=== PATIENT | female | born 1980 | race American Indian/Alaskan Native ===

== ENCOUNTER 2016-10-06 08:31 | Inpatient (IN) | payer BC ==
[2016-10-02 12:40] LABS: Basophils % (Auto) 0.6 % (0.0-1.8); Hematocrit 39.1 % (30.3-42.9); Hemoglobin 12.7 gm/dl (10.1-14.3); Mean Corpuscular HGB Conc 32 % (30-34); Mean Corpuscular Hemoglobin 30 pg (28-32); Mean Corpuscular Volume 93 fl (79-97); Platelet Count 195 K/mm3 (140-440); Red Cell Distribution Width 14.5 % (13.2-15.2); White Blood Count 5.5 K/mm3 (4.5-11.0)
--- NOTE | 2016-10-05 20:04 | History and Physical Report ---
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 History Operations: Negative Past Surgical History Abnormal PAP: negative Infection History HIV Risk Eval: no Hx of STD: None Active Medications (reviewed today): IBUPROFEN 800 MG TABS (IBUPROFEN) 1 po TID (PRN) OXYCODONE-ACETAMINOPHEN 5-325 MG TABS (OXYCODONE-ACETAMINOPHEN) 1-2po q6h LEVOTHYROXINE SODIUM 100 MCG TABS (LEVOTHYROXINE SODIUM) 1 po qd LATANOPROST SOLN (LATANOPROST SOLN) TIMOPTIC SOLN (TIMOLOL MALEATE SOLN) Current Allergies (reviewed today): No known allergies Past Medical History: Reviewed history from 06/22/2016 and no changes required: glaucoma thyroid disease Past Surgical History: Reviewed history from 06/22/2016 and no changes required: Negative Past Surgical History Social History: Reviewed history from 06/22/2016 and no changes required: Patient is single Smoking History: Patient has never smoked. Risk Factors: Smoked Tobacco Use: Never smoker Smokeless Tobacco Use: Never Drug use: no HIV high-risk behavior: no Alcohol use: yes Type: rare Drinks per day: social Exercise: yes Seatbelt use: 100 % Previous Tobacco Use: Signed On - 06/22/2016 Smoked Tobacco Use: Never smoker Drug use: no Previous Alcohol Use: Signed On 06/22/2016 Alcohol use: no Exercise: yes Times per week: 3 Seatbelt use: 100 % PAP Smear History: Date of Last PAP Smear: 06/24/2015 Review of Systems General Denies fever, chills, sweats, anorexia, fatigue, weakness, malaise, weight loss and sleep disorder. Complains of pelvic pain. Denies vaginal discharge, incontinence, dysuria, hematuria, urinary frequency, amenorrhea, menorrhagia, abnormal vaginal bleeding, genital sores, decreased libido, painful periods, painful sex, urinary urgency, hot flashes, vaginal dryness, vaginal itching and vaginal odor. CV Denies chest pains, palpitations, syncope, dyspnea on exertion, orthopnea, PND and peripheral edema. Resp Denies cough, dyspnea at rest, excessive sputum, hemoptysis, wheezing and pleurisy. GI Denies nausea, vomiting, diarrhea, constipation, change in bowel habits, abdominal pain, melena, hematochezia, jaundice, gas/bloating, indigestion/ heartburn, dysphagia and odynophagia. Endo Denies cold intolerance, heat intolerance, polydipsia, polyphagia, polyuria and unusual weight change. Breast Denies left breast lump, right breast lump, nipple discharge, bloody discharge from nipple, breast pain, abnormal mammogram and breast enlargement. MS Denies back pain, joint pain, joint swelling, muscle cramps, muscle weakness, stiffness, arthritis, sciatica, restless legs, leg pain at night and leg pain with exertion. Derm Denies rash, itching, dryness and suspicious lesions. Neuro Denies paralysis, paresthesias, headache, seizures, tremors, vertigo, transient blindness, frequent falls, frequent headaches and difficulty walking. Psych Denies depression, anxiety, irritability and mood swings. Eyes Denies blurring, diplopia, irritation, discharge, vision loss, eye pain and photophobia. ENT Denies earache, ear discharge, tinnitus, decreased hearing, nasal congestion, nosebleeds, sore throat and hoarseness. Allergy Denies urticaria, allergic rash, hay fever and recurrent infections. Heme Denies abnormal bruising, bleeding and enlarged lymph nodes. Physical Exam Appearance: well developed, well nourished, no acute distress Other Exams Lungs: no rales, rhonchi, or wheezes Heart: S1, S2, no murmur, rub, or gallop Abdomen: mass Skin: no ulcers, xanthomas Lymph: no cervical, axillary, or inguinal adenopathy Extremities: normal alignment, no joint enlargement, crepitus, masses or tenderness; normal tone and strength Genitourinary Exam Vulva: normal, no lesions or discharge Urethral meatus: normal size and location, no lesions or discharge Urethra: no discharge Bladder: no cystocele Vagina: normal appearance, no discharge, lesions. No evidence of cystocele or rectocele. Cervix: normal appearance, no lesions, no discharge Uterus: mass Uterus Size: fills the entire pelvis to ~5cm above the umbilicus Adnexa: mass Impression & Recommendations: Problem # 1: Fibroids of uterus; Intramural (ICD-218.1) (WDC32-O76.1) Diagnosis explained to patient . Questions answered. Discussed with patient various medical, surgical and radioloigal therapies common for treatment: Hormonal/medical therapy, fibroid embolization, removal of fibroids or hysterectomy . She desires fertility and desires to proceed with abdominal myomectomy. Consent reviewed and signed . Possible laparoscopy or laparotomy explained to patient. The risks and alternatives for this surgery were reviewed with the patient. She was informed of possible bleeding, infection, injury to bowel, bladder, ureters or other adjacent organs. She was informed she may not be able to get after this procedure due to ahdesions and scarring. She was also informed she may require assisted reproductive technology to get . It was explained that in rare occasions the uterus may required to be removed to save her life. She was then made aware that should she get she will mostly likely require a delivery. The patient was instructed/informed the following: The normal length of hospital stay for this procedure. Nothing to eat or drink after midnight the evening prior to surgery. Clear liquids the day before surgery. Fleets enema the day prior to surgery. Pre-op instruction sheets given. Wound care instructions given. Infection precautions reviewed, patient to call for any signs or symptoms of infection. The usual discomforts associated with this procedure were detailed. Proper use of pain medicines was reviewed. Patient was given ample opportunity to have all her questions answered before signing informed consent. Problem # 2: Pelvic and perineal pain (ICD-789.00) (CYY99-T10.2) It was extensively explained to her that her pain may persist, recur or change in nature due to the difficulty with diagnosis chronic pelvic pain or development of adhesions. She declined other treatment options at this time. Problem # 3: Other hydronephrosis (OGA86-A58.39) Medications Added to Medication List This Visit: 1) Ibuprofen 800 Mg Tabs (Ibuprofen) .... 1 po tid (prn) 2) Oxycodone-acetaminophen 5-325 Mg Tabs (Oxycodone-acetaminophen) .... 1-2po q6h 3) Levothyroxine 50mcg 4) Levothyroxine Sodium 100 Mcg Tabs (Levothyroxine sodium) .... 1 po qd Prescriptions: OXYCODONE-ACETAMINOPHEN 5-325 MG TABS (OXYCODONE-ACETAMINOPHEN) 1-2po q6h #30 x 0 Entered and Authorized by: Niurka Cortez MD Method used: Print then Give to Patient RxID: [id number] IBUPROFEN 800 MG TABS (IBUPROFEN) 1 po TID (PRN) #30 x 1 Entered and Authorized by: Niurka Cortez MD Method used: Print then Give to Patient RxID: [id number] Medications and Allergies Allergies Allergy/AdvReac Type Severity Reaction Status Date / Time No Known Allergies Allergy Unverified 10/01/16 16:30 Home Medications Medication Instructions Recorded Confirmed Last Taken Type Latanoprost 0.005% [Xalatan 0.005%] 1 drop OP QPM 10/01/16 10/01/16 Unknown History Levothyroxine [Synthroid] 50 mcg PO QAM 10/01/16 10/01/16 Unknown History Timolol [Betimol] 1 drop OU DAILY 10/01/16 10/01/16 Unknown History Active Meds: Active Medications Cefazolin Sodium (Ancef/Sterile Water 2 Gm/20 Ml) 2 gm in 20 mls @ 80 mls/hr IV PREOP NR PRN Reason: Protocol Exam Vital Signs Temp Pulse Resp BP 98 F 70 14 138/86 10/02/16 11:45 10/02/16 11:45 10/02/16 11:45 10/02/16 11:45 Results - Labs 10/02/16 11:50 Assessment and Plan - Patient Problems (1) Intramural leiomyoma of uterus Status: Acute (2) Pelvic and perineal pain Status: Acute (3) Other hydronephrosis Status: Acute
[~2016-10-06 08:31] MED LIST: ANCEF/STERILE WATER 2 GM/20 ML 2 GM/20 ML SYRINGE IV NR
--- NOTE | 2016-10-06 09:15 | Anesthesia Day of Surgery ---
Anesthesia Day of Surgery - Day of Surgery Patient Examined: Yes Patient H&P Reviewed: Yes Patient is NPO: Yes
--- NOTE | 2016-10-06 09:15 | Anesthesia Consultation ---
Anesthesia Consult and Med Hx Date of service: 10/06/16 - Airway Anesthetic Teeth Evaluation: Good ROM Head & Neck: Adequate Mental/Hyoid Distance: Adequate Mallampati Class: Class II Intubation Access Assessment: Probably Good - Pulmonary Exam CTA: Yes - Cardiac Exam Cardiac Exam: RRR - Pre-Operative Health Status ASA Pre-Surgery Classification: ASA2 Proposed Anesthetic Plan: General - Pulmonary Hx Smoking: No Hx Asthma: No Hx Sleep Apnea: No - Cardiovascular System Hx Hypertension: No - Central Nervous System Hx Seizures: No CVA: No Hx Psychiatric Problems: No - Endocrine Hx Thyroid Disease: Yes Hx Hypothyroidism: Yes - Other Systems Hx Cancer: No Hx Obesity: Yes - Additional Comments Anesthesia Medical History Comments: DOES NOT WANT TAP BLOCK
--- NOTE | 2016-10-06 09:43 | Admit Criteria Form ---
Admission Criteria Documentation: AMBULATORY SURGERY EXCEPTION CRITERIA Ambulatory Surgery Exception Criteria ( Place 'X' for any and all applicable criteria): Surgery or procedure performed on ambulatory basis may require inpatient stay for[A] ANY ONE of the following(1)(2)(3)(4)(5)(6)(7)(8)(9): [X] I. A preoperative situation, condition, or finding that warrants inpatient stay as indicated by ANY ONE of the following: [X] a) Inpatient care needed because of severity of a disease or condition rather than the surgery (eg, severe cardiac or respiratory disease, severe infection) (15) (16 ) (17) (18) [] b) Emergent procedure (eg, angioplasty for acute ischemia)(19) [] c) Complex surgical approach or situation as indicated by ANY ONE of the following(3): [] i) Open approach needed instead of usual endoscopic, transcatheter, or other less invasive procedure [] ii) Difficult approach because of previous operation [] iii) Airway monitoring required after open neck procedures(20)(21) [] iv) Large mass requiring unusually extensive dissection [] v) Additional complicating feature requiring inpatient care (eg, drain management)(22(23): [] d) Major surgery in a pt with high anesthetic risk as indicated by ANY ONE of the following (2)(3)(5)(7)(8): [] i) ASA risk class III or higher (severe systemic disease impairing function) [D] [] ii) Advanced age (eg, older than 85 years)(14)(24) [] iii) Symptomatic heart failure(25) [] iv) Symptomatic asthma or COPD(8)(21) [] v) Morbid obesity with hemodynamic or respiratory problems(20)( 21)(26)(27) [] vi) Obstructive sleep apnea(20)(21) [] vii) Former premature infants who are younger than 60 weeks [] viii) High risk for severe postoperative abnormalities (eg, severe postoperative hypocalcemia after parathyroidectomy for severe hyperparathyroidism)(27)( 28) [] ix) Unstable angina(25) [] e) Drug-related risk requiring inpatient stay as indicated by ANY ONE of the following(5)(10)(14)(32)(33) [] i) Procedure requires discontinuing drugs or other therapy (eg , antiarrhythmic medication, antiseizure medication), which necessitates inpatient observation or treatment.(18)(31) [] ii) Major surgery and high risk drug use as indicated by ANY ONE of the following: [] 1) Active abuse of cocaine or similar drug [] 2) Monoamine oxidase inhibitor use [] 3) Other drug identified as posing risk [] f) Inadequate outpatient care situation as indicated by ANY ONE of the following(5)(10)(14)(32)(33) [] i) Patient lives remote from medical facility and procedure has urgent complication potential, and temporary nearby residence cannot be arranged [] ii) Patient will have postprocedure incapacitation and inadequate assistance at home, or alternative level of care cannot be arranged. [] iii) Patient will have long general anesthesia or procedure side effect resolution time, and competent person to stay with patient on first postoperative night at home or alternative level of care cannot be arranged. []iv) Other inadequate outpatient situation that cannot be handled by other means [] II. A perioperative event, condition, or finding that warrants inpatient stay as indicated by ANY ONE of the following (1)(2)(3): [] a) Inadequate physiologic recovery: cardiovascular, respiratory, or hemodynamic status not normal or near preoperative baseline(18) [] b) Hemodynamic instability [] c) Patient not alert with near normal or baseline mental status [] d) Temperature not normal or as expected and not appropriate for outpatient treatment of condition [] e) Ambulatory or appropriate activity level status not yet achieved post procedure [E](34)(35)(36) [] f) Operative site not appropriate (eg, unexpected or excessive drainage or bleeding) [] g) Postoperative effects not resolved or adequately managed (eg, significant pain or vomiting not appropriate for outpatient or next level of care)(10)(12) [] h) Complicating features requiring inpatient care as indicated by ANY ONE of the following(37): [] i) Severe complications of procedure (eg, bowel injury, airway compromise, vascular injury,severe hemorrhage) [] ii) Extensive (eg, dissection far beyond usual scope of procedure ) or prolonged (eg, 120 minutes beyond usual) surgery needed requiring inpatient postoperative care [] iii) Conversion to an open or complex procedure that requires inpatient care (eg, open vs laparoscopic cholecystectomy, abdominal vs vaginal hysterectomy)(38) [] iv) Comorbid condition or test result identified during or post procedure that requires inpatient care (7) [] v) Malignant hyperthermia(30) [] vi) Other complicating feature requiring inpatient care(22)(23) Inpatient stay may be needed until ALL of the following are present (1)(2)(3)(4) (5)(6)(10)(14)(33)(40): []a) Physiologic recovery: cardiovascular, respiratory, and hemodynamic status normal or near preoperative baseline []b) Hemodynamic stability []c) Patient alert, with near normal or baseline mental status []d) Temperature appropriate: patient afebrile or temperature appropriate for outpt treatment of condition []e) Activity level appropriate: ambulatory or appropriate activity level post procedure []f) Operative site appropriate as indicated by ALL of the following: []i) Site dry or with expected drainage []ii) Any blood noted is as expected for procedure. []g) Postoperative effects resolved or managed as indicated by ALL of the following: []i) Pain management appropriate for outpatient (or next level of) care(10) []ii) Minimal nausea and vomiting: if present, successfully treated with oral medication(12) []iii) Headache, dizziness, or drowsiness (if present) are mild. []h) Voiding status acceptable as indicated by ANY ONE of the following: []i) Voiding spontaneously []ii) No voiding but instructions given for follow-up in 6 to 8 hours []iii) Urinary catheter in place, and instructions given for follow-up []i) Complicating features requiring inpatient care manageable at a lower level of care(37) []j) Comorbid conditions manageable at a lower level of care(37) The original [employer] content created by [employer] has been revised. The portions of the content which have been revised are identified through the use of italic text or in bold, and [employer] has neither reviewed nor approved the modified material. All other unmodified content is copyright [employer]. Please see references footnoted in the original [employer] edition 2016 Admission Criteria Met: Yes
[2016-10-06] MEDS ORDERED: SUBLIMAZE IV ONE (10:00)
[2016-10-06] MEDS ORDERED: NACL 0.9% 1000 ML 1,000 ML IV SCH (10:00)
[2016-10-06] MEDS ORDERED: VERSED IV NR (10:00)
[2016-10-06] MEDS ORDERED: NEURONTIN PO NR (10:00)
[2016-10-06] MEDS ORDERED: PEPCID PO NR (10:00)
[2016-10-06 10:26] LABS: Anion Gap TNR mmol/L; Blood Urea Nitrogen TNR mg/dL (7-17); Carbon Dioxide TNR mmol/L (22-30); Chloride TNR mmol/L (98-107); Potassium TNR mmol/L (3.6-5.0); Sodium TNR mmol/L (137-145)
[2016-10-06 10:27] LABS: BUN/Creatinine Ratio TNR; Calcium TNR mg/dL (8.4-10.2); Glucose TNR mg/dL (65-100)
[2016-10-06] MEDS ORDERED: DIPRIVAN 10 MG/ML IV ONE (10:49)
[2016-10-06] MEDS ORDERED: SUBLIMAZE ONE (10:50)
[2016-10-06 10:51] LABS: Anion Gap 18 mmol/L; Blood Urea Nitrogen 7 mg/dL (7-17); Carbon Dioxide 23 mmol/L (22-30); Chloride 101.7 mmol/L (98-107); Glucose 85 mg/dL (65-100); Potassium 4.5 mmol/L (3.6-5.0); Sodium 138 mmol/L (137-145)
[2016-10-06] MEDS ORDERED: ePHEDrine SULFATE ONE (11:25)
[2016-10-06] MEDS ORDERED: NACL 0.9% 100 ML ONE (11:26)
[2016-10-06] MEDS ORDERED: ACD-A 500 ML IV ONE (11:26)
[2016-10-06] MEDS ORDERED: NACL 0.9% IR ONE (11:31)
[2016-10-06] MEDS ORDERED: NACL 0.9% IV ONE (11:31)
[2016-10-06] MEDS ORDERED: ACD-A IV ONE (11:31)
[2016-10-06] MEDS ORDERED: XYLOCAINE MPF 2% ONE (11:36)
[2016-10-06] MEDS ORDERED: ZEMURON IV ONE (11:36)
[2016-10-06] MEDS ORDERED: DECADRON ONE (11:36)
[2016-10-06] MEDS ORDERED: NEOSTIGMINE ONE (11:37)
[2016-10-06] MEDS ORDERED: ROBINUL ONE (11:37)
[2016-10-06] MEDS ORDERED: ZOFRAN ONE (11:38)
[2016-10-06] MEDS ORDERED: NACL 0.9% 1000 ML 1,000 ML ONE ×3 (11:59→13:54)
[2016-10-06] MEDS ORDERED: DILAUDID ONE ×2 (13:24→14:16)
--- NOTE | 2016-10-06 13:26 | Post Operative Note ---
Pre-op diagnosis: pelvic pain, uterine fibroids Post-op diagnosis: same Anesthesia: GETA Surgeon: BANG VAIL Estimated blood loss: other (750mL) Pathology: list (fibroids) Specimen disposition: to lab Condition: stable Disposition: PACU
--- NOTE | 2016-10-06 14:05 | Post Anesthesia Evaluation ---
- Post Anesthesia Evaluation Patient Participated: Yes Airway Patent: Yes Stable Respiratory Function: Yes Nausea/Vomiting: No Temp > 96.8F: Yes Pain Manageable: Yes Adequeate Hydration: Yes Anesthesia Complications: No Block Receding Appropriately: Not Applicable Patient on Ventilator: No
[2016-10-06] MEDS ORDERED: DILAUDID IV PRN (14:15)
--- NOTE | 2016-10-06 14:38 | Operative Report ---
Operative Report Operative Report: Date of procedure: 10/06/2016 Pre-operative diagnosis: 1. Large uterine fibroids 2. Pelvic pain 3. Mild hydronephrosis due to fibroids Post-operative diagnosis: 1. Large uterine fibroids 2. Pelvic pain 3. Mild hydronephrosis due to fibroids Procedure name(s): Abdominal myomectomy Surgeon: Niurka Cortez MD Manager Of Construction: Raina Motta Anesthesia: GETA Findings: Approximately 15 cm x 20 cm intramural fibroid. Small less than 1 cm fibroids. Anesthesiologist: Dr. Smith EBL: 750 mL Cell Saver: 375 mL received Procedure: After risks, benefits, complications, and consequences, and alternatives for this procedure were discussed with patient and she voiced her understanding and desire to proceed, she was taken to the OR, and placed in supine position. General anesthesia was induced. Exam under anesthesia revealed the uterus to be approximately 22 weeks size. Zuniga catheter was placed in the usual fashion. She was then prepped and draped in the usual sterile fashion. Timeout was performed. A Pfannenstiel incision was made and extended in a lateral direction to the fascia. The fascia was incised, and extended in a lateral direction. The fascia was sharply dissected away from the underlying rectus muscle and superior inferior direction. The midline was entered with both blunt and sharp dissection. The uterus was elevated through incision. One large intramural fibroid was removed. She was also noted to have a 3 cm right paratubal cyst that was removed. Grossly ovaries were noted. Pitressin 20 units in 100 mL is of normal saline was injected into the serosa of the uterus. An incision was made using 50 W and at the fundus of the uterus. The fibroid was excised. The uterus was thoroughly palpated and examined. There were 3 other fibroids noted one on the anterior left fundal region one on the right near her fallopian tube and posterior left fundal. Fibroids were excised. Once no other fibroids were palpated or visualized, the defects were reapproximated using 0 Vicryl in interrupted [id number] stitches in layers. The serosa was reapproximated using 0 Vicryl interrupted [id number] stitches. During closure of each layer platelet rich plasma was applied at each layer to ensure hemostasis. The pelvis was irrigated with normal saline. Once hemostasis was noted, then a membrane of platelet poor plasma was applied to the serosa. The uterus was then allowed back into the pelvic cavity. On visualization again hemostasis was noted. No bowel, bladder, ureteral or major vascular injury was noted. Then attention was turned to the rectus muscle, where hemostasis was noted. Platelet poor plasma was applied to the rectus muscle. Once hemostasis was noted, the fascia was reapproximated using 0 Vicryl as a running stitch. Again the remaining platelet poor plasma was applied. Hemostasis was obtained with electrocoagulation. Once hemostasis was noted, the skin was reapproximated using 4-0 Vicryl in subcuticular manner. Drainage of clear urine was noted to the Zuniga catheter. Patient tolerated the procedure well and was taken to recovery room in stable condition.
[2016-10-06] MEDS ORDERED: REGLAN IV PRN (15:35)
[2016-10-06] MEDS ORDERED: ZOFRAN IV PRN (15:35)
[2016-10-06] MEDS ORDERED: REGLAN PO PRN (15:35)
[2016-10-06] MEDS ORDERED: MORPHINE IV PRN ×2 (15:35)
[2016-10-06] MEDS ORDERED: TYLENOL PR PRN (15:35)
[2016-10-06] MEDS ORDERED: ZOFRAN PO PRN (15:35)
[2016-10-06] MEDS ORDERED: TYLENOL PO PRN (15:35)
[2016-10-06] MEDS ORDERED: ANCEF/NS 1 GM/50 ML 1 GM/50 ML BAG IV SCH (17:00)
[2016-10-06] MEDS: TORADOL IV SCH (17:33)
[2016-10-06] MEDS: LACTATED RINGERS 1,000 ML IV SCH (17:36)
[2016-10-06] MEDS ORDERED: LATANOPROST 0.005% OP SCH (18:00)
[2016-10-06] MEDS ORDERED: XALATAN 0.005% OU SCH (18:00)
--- NOTE | 2016-10-06 21:00 | Progress Note ---
Assessment and Plan Operative findings and procedure explained, questions answered, she voiced understanding and agrees with plan of care - Patient Problems (1) Intramural leiomyoma of uterus Current Visit: Yes Status: Resolved (2) Pelvic and perineal pain Current Visit: Yes Status: Resolved (3) Other hydronephrosis Current Visit: Yes Status: Resolved (4) Status post myomectomy Current Visit: Yes Status: Acute Subjective Date of service: 10/06/16 Patient Reports: Positive: no new complaints, feels better, tolerating liquids well Objective Vital Signs - 12hr 10/06/16 10/06/16 10/06/16 09:10 13:40 13:45 Temperature 99.1 F 97.4 F L Pulse Rate 70 61 64 Pulse Rate [ Left Radial] Pulse Rate [ Right Brachial] Respiratory 20 23 23 Rate Blood Pressure 126/72 136/83 138/82 Blood Pressure [Left Arm] Blood Pressure [Right Arm] O2 Sat by Pulse 99 100 100 Oximetry 10/06/16 10/06/16 10/06/16 13:50 14:00 14:10 Temperature Pulse Rate 65 67 Pulse Rate [ Left Radial] Pulse Rate [ Right Brachial] Respiratory 24 21 16 Rate Blood Pressure 142/87 153/100 Blood Pressure [Left Arm] Blood Pressure [Right Arm] O2 Sat by Pulse 100 100 Oximetry 10/06/16 10/06/16 10/06/16 14:15 14:30 14:35 Temperature Pulse Rate 55 L 68 Pulse Rate [ Left Radial] Pulse Rate [ Right Brachial] Respiratory 19 19 22 Rate Blood Pressure 148/94 144/96 Blood Pressure [Left Arm] Blood Pressure [Right Arm] O2 Sat by Pulse 100 96 Oximetry 10/06/16 10/06/16 10/06/16 14:50 15:15 16:00 Temperature 97.4 F L 97.6 F 97.6 F Pulse Rate 62 Pulse Rate [ 66 Left Radial] Pulse Rate [ 58 L Right Brachial] Respiratory 20 18 17 Rate Blood Pressure 144/96 Blood Pressure 133/88 [Left Arm] Blood Pressure 153/89 [Right Arm] O2 Sat by Pulse 97 Oximetry - General physical appearance well developed, well nourished, no distress - Respiratory normal respiratory effort - Abdomen bowel sounds normal - Labs 10/02/16 11:50 10/06/16 09:30 Diabetes panel 10/06/16 10/06/16 Range/Units 09:30 09:30 Sodium TNR 138 Potassium TNR 4.5 Chloride TNR 101.7 Carbon Dioxide TNR 23 BUN TNR 7 Creatinine TNR 0.5 L Glucose TNR 85 Calcium TNR 9.0 Calcium panel 10/06/16 10/06/16 Range/Units 09:30 09:30 Calcium TNR 9.0 Pituitary panel 10/06/16 10/06/16 Range/Units 09:30 09:30 Sodium TNR 138 Potassium TNR 4.5 Chloride TNR 101.7 Carbon Dioxide TNR 23 BUN TNR 7 Creatinine TNR 0.5 L Glucose TNR 85 Calcium TNR 9.0 Adrenal panel 10/06/16 10/06/16 Range/Units 09:30 09:30 Sodium TNR 138 Potassium TNR 4.5 Chloride TNR 101.7 Carbon Dioxide TNR 23 BUN TNR 7 Creatinine TNR 0.5 L Glucose TNR 85 Calcium TNR 9.0
[2016-10-06] MEDS: ANCEF/NS 1 GM/50 ML 1 GM/50 ML BAG IV SCH (23:00)
[2016-10-07] MEDS: LACTATED RINGERS 1,000 ML IV SCH ×2 (01:47→12:39)
[2016-10-07] MEDS: TORADOL IV SCH ×3 (01:47→15:26)
[2016-10-07] MEDS: PEPCID IV SCH ×3 (01:54→23:57)
[2016-10-07] MEDS ORDERED: SYNTHROID PO SCH (06:00)
[2016-10-07 06:57] LABS: Hematocrit 29.5 % (30.3-42.9); Hemoglobin 9.9 gm/dl (10.1-14.3)
[2016-10-07] MEDS: ANCEF/NS 1 GM/50 ML 1 GM/50 ML BAG IV SCH (07:22)
--- NOTE | 2016-10-07 08:13 | Progress Note ---
Assessment and Plan - Patient Problems (1) Status post myomectomy Current Visit: Yes Status: Acute (2) Intramural leiomyoma of uterus Current Visit: Yes Status: Resolved (3) Pelvic and perineal pain Current Visit: Yes Status: Resolved (4) Other hydronephrosis Current Visit: Yes Status: Resolved (5) Decreased breath sounds at right lung base Current Visit: Yes Status: Acute Plan to address problem: CXR, encouraged IC usage and ambulation Subjective Date of service: 10/07/16 Patient Reports: Positive: no new complaints, tolerating liquids well (robledo is controlled), no flatus Objective Vital Signs - 12hr 10/07/16 10/07/16 00:00 04:00 Temperature 98.6 F 98.1 F Pulse Rate [ 76 68 Right Brachial] Respiratory 16 20 Rate Blood Pressure 118/84 113/71 [Right Arm] - General physical appearance well developed, well nourished, no distress - Respiratory normal respiratory effort absent breath sounds: right - Abdomen soft, bowel sounds normal - Integumentary no rash, no growths - Additional Exam Extremities: NT no edema - Labs 10/07/16 06:28 10/06/16 09:30 Diabetes panel 10/06/16 10/06/16 Range/Units 09:30 09:30 Sodium TNR 138 Potassium TNR 4.5 Chloride TNR 101.7 Carbon Dioxide TNR 23 BUN TNR 7 Creatinine TNR 0.5 L Glucose TNR 85 Calcium TNR 9.0 Calcium panel 10/06/16 10/06/16 Range/Units 09:30 09:30 Calcium TNR 9.0 Pituitary panel 10/06/16 10/06/16 Range/Units 09:30 09:30 Sodium TNR 138 Potassium TNR 4.5 Chloride TNR 101.7 Carbon Dioxide TNR 23 BUN TNR 7 Creatinine TNR 0.5 L Glucose TNR 85 Calcium TNR 9.0 Adrenal panel 10/06/16 10/06/16 Range/Units 09:30 09:30 Sodium TNR 138 Potassium TNR 4.5 Chloride TNR 101.7 Carbon Dioxide TNR 23 BUN TNR 7 Creatinine TNR 0.5 L Glucose TNR 85 Calcium TNR 9.0
--- NOTE | 2016-10-07 09:35 | Progress Note ---
Subjective Date of service: 10/07/16 Principal diagnosis: Uterine fibroids Interval history: Patient seen post-op day 1, satisfied with anesthesia; not yet ambulating. Objective - Constitutional Vitals: Vital Signs - 12hr 10/07/16 10/07/16 10/07/16 00:00 04:00 08:05 Temperature 98.6 F 98.1 F 98.7 F Pulse Rate [ 76 68 71 Right Brachial] Respiratory 16 20 18 Rate Blood Pressure 118/84 113/71 116/77 [Right Arm] - Labs CBC & Chem 7: 10/07/16 06:28 10/06/16 09:30 Labs: Abnormal lab results 10/06/16 10/07/16 Range/Units 09:30 06:28 Hgb 9.9 L (10.1-14.3) gm/dl Hct 29.5 L (30.3-42.9) % Creatinine 0.5 L (0.7-1.2) mg/dL
[2016-10-07] MEDS ORDERED: TIMOLOL OU SCH (10:00)
[2016-10-07] MEDS ORDERED: LEVOTHYROXINE 50 MCG PO SCH (10:00)
[2016-10-07] MEDS ORDERED: XALATAN 0.005% OU SCH (10:00)
--- NOTE | 2016-10-07 10:28 | XRay Report ---
Chest 2 views. Findings: The heart and pulmonary vessels are normal. There is eventration of the right hemidiaphragm. The lungs are clear. There is no pleural fluid. Impression: No acute findings.
[2016-10-07] MEDS ORDERED: TORADOL ONE (15:21)
[2016-10-08] MEDS: PERCOCET 5/325 PO PRN ×2 (04:28→09:45)
[2016-10-08 07:29] VITALS: BP 103/60
--- NOTE | 2016-10-08 08:50 | Discharge Summary ---
Providers - Providers Date of Admission: 10/06/16 09:00 Date of discharge: 10/08/16 Attending physician: BANG VAIL Primary care physician: KOSHER BUTCHER Hospitalization Condition: Good Pertinent studies: cxr Procedures: abdominal myomectomy Hospital course: uncomplicated Disposition: DC-01 TO HOME OR SELFCARE - Discharge Diagnoses (1) Status post myomectomy Status: Acute (2) Intramural leiomyoma of uterus Status: Resolved (3) Pelvic and perineal pain Status: Resolved (4) Other hydronephrosis Status: Resolved (5) Decreased breath sounds at right lung base Status: Resolved Core Measure Documentation - Palliative Care Palliative Care/ Comfort Measures: Not Applicable - Core Measures Any of the following diagnoses?: none Exam - Constitutional Vitals: Temp Pulse Resp BP Pulse Ox 98.7 F 74 18 103/60 97 10/08/16 07:28 10/08/16 07:28 10/08/16 07:28 10/08/16 07:28 10/06/16 14:50 General appearance: Present: no acute distress - Respiratory Respiratory effort: normal Respiratory: negative: CTA - Cardiovascular Rhythm: regular - Extremities Extremities: no ischemia, No edema - Abdominal General gastrointestinal: Present: soft, non-distended, normal bowel sounds Female genitourinary: Present: deferred - Integumentary Integumentary: Present: clear, warm, dry (incision c/d/i) - Musculoskeletal Musculoskeletal: strength equal bilaterally - Psychiatric Psychiatric: appropriate mood/affect Plan Activity: other (no sex, no driving, ambulate on your property ~1mile a day) Weight Bearing Status: Non-Weight Bearing Diet: regular (eat small meals frequently, drink ~80 oz water a day, void frequently) Wound: open to air, keep clean and dry Special Instructions: no heavy lifting Follow up with: PRIMARY CARE, [Primary Care Provider] - 7 Days BANG VAIL MD [Staff Physician] - (as scheduled)
== END 2016-10-08 17:00 | disposition home or self-care (01) | DRG 742 ==
LOC: 3A 09:00 → OB 13:52
PROVIDERS: ADMIT Obstetrics & Gynecology; ATTEND Obstetrics & Gynecology
PROC: 0UB90ZZ Excision of Uterus, Open Approach (ICD-10-PCS; principal; 2016-10-06)
DX: D25.1 Intramural leiomyoma of uterus (principal); N13.30 Unspecified hydronephrosis; H40.9 Unspecified glaucoma; E03.9 Hypothyroidism, unspecified; R10.2 Pelvic and perineal pain
CPT/HCPCS: 36415; 71020; 80048; 84703; 85014; 85018; 85025; 86850; 86900; 86901; 88304; 88305; J0690; J1100; J1170; J1885; J2250; J2405; J2704; J2710; J3010; J7030; J7120